=== PATIENT | female | born 1955 | race Caucasian/White ===

== ENCOUNTER 2023-08-04 09:36 | Outpatient (AMB) | payer OTHER, SELFPAY ==
--- NOTE | 2023-08-04 09:59 | MHC.OFFWIV ---
Intake Vital Signs 08/04/23 10:03 Height 5 ft 5 in Weight 295 lb BMI 49.1 BP 124/78 Blood Pressure Location Lt brachial Position Sitting Pulse 63 Pulse Source Pulse Oximeter Temp 98.0 F Temp Source Oral Pulse Oximetry (%) 97 Oxygen Delivery Method Room Air Intake Visit Reasons: [employer] ?UTI Intake Note: Patient is here with UTI symptoms which started yesterday, with blood today. Patient Tobacco Use Status: Former Tobacco user Allergies No Known Allergies Allergy (Verified 08/04/23 10:01) Do you need a note to return to daycare/school/sports/work: Yes HPI [employer] ?UTI HPI Details Patient is a 68-year-old female who is new to the walk-in, and comes in complaining of dysuria and gross blood in the urine as of this morning. She states she does have a history of urinary tract infections, which usually clear with the initial empiric treatment. She denies kidney infections, kidney stones, or other pertinent associated medical history. She denies nausea vomiting or diarrhea, weakness or dizziness, myalgias or malaise, fever or chills, abdominal pain, flank or back pain, vaginal discharge or other significant associated symptoms. No report of high-risk sexual intercourse necessitating STD testing. [facility] Social History Patient Tobacco Use Status: Former Tobacco user Review of Systems Const All systems reviewed & are unremarkable except as noted in HPI and below Physical Exam Vital Signs: Last Vital Signs Temp 98.0 F 08/04/23 10:03 Pulse 63 08/04/23 10:03 BP 124/78 08/04/23 10:03 Pulse Ox 97 08/04/23 10:03 Oxygen Delivery Method Room Air 08/04/23 10:03 BMI result Body Mass Index 49.1 Const General: cooperative, healthy appearing, comfortable, no acute distress, alert, awake, Physically active and well groomed; No anxious, diaphoretic, ill appearing, intoxicated appearing, poor hygiene or tired appearing Nutritional Appearance: average body habitus Orientation/consciousness: oriented to person Limitations: no limitations Resp Effort & Inspection: normal respiratory effort, able to speak in complete sentences, no audible wheezes, no cough, no grunting, not labored, no nasal flaring, no retractions and symmetric chest movement Auscultation: clear to auscultation bilaterally, no crackles, no rales, no rhonchi, no wheezes, lung sounds not diminished and No rub present Cardio Rate: regular rate GI Palpation (GI): Soft to palpation, nontender, no guarding and not rigid General: Yes no CVA tenderness Back/Spine/Pelvis Back: no CVA tenderness Skin Other: Good color, warm and dry Neuro General: oriented to person Psych Appearance: grossly normal Mental Status: mental status grossly normal Speech and movement: Normal speech and movement present Affect: normal affect Attitude: cooperative Thought process: Normal thought process present Insight: Good insight present (Psych) Judgement: Good judgement present (Psych) Results AMB Urinalysis, Automated UA Leukoctes 2 Uzma/uL Last Edit by Diana Carranza CMA on 08/04/23 10:12 UA Nitrite Negative Last Edit by Diana Carranza CMA on 08/04/23 10:12 UA Urobilinogen 0.2 mg/dL Last Edit by Diana Carranza CMA on 08/04/23 10:12 UA Protein 2 mg/dL Last Edit by Diana Carranza CMA on 08/04/23 10:12 UA pH 6.0 Last Edit by Diana Carranza CMA on 08/04/23 10:12 UA Blood 3 Jerry/uL Last Edit by Diana Carranza CMA on 08/04/23 10:12 UA Specific Ullin 1.030 Last Edit by Diana Carranza CMA on 08/04/23 10:12 UA Ketone Negative Last Edit by Diana Carranza CMA on 08/04/23 10:12 UA Bilirubin 0 mg/dL Last Edit by Diana Carranza CMA on 08/04/23 10:12 UA Glucose 0 mg/dL Last Edit by Diana Carranza CMA on 08/04/23 10:12 Results Reviewed Results Reviewed: Laboratory Last Values Urine pH (Auto) 6.0 08/04/23 09:55 Specific Ullin (Auto) 1.030 08/04/23 09:55 Urine Protein (Auto) 2 mg/dL 08/04/23 09:55 Glucose (UA)(Auto) 0 mg/dL 08/04/23 09:55 Urine Ketones (Auto) Negative 08/04/23 09:55 Urine Blood (Auto) 3 Jerry/uL 08/04/23 09:55 Urine Nitrite (Auto) Negative 08/04/23 09:55 Urine Bilirubin (Auto) 0 mg/dL 08/04/23 09:55 Urine Urobilinogen (Auto) 0.2 mg/dL 08/04/23 09:55 Leukocyte Esterase (Auto) 2 Uzma/uL 08/04/23 09:55 Assessment & Plan Assessment & Plan (1) Urinary tract infection: Code(s): N39.0 - Urinary tract infection, site not specified Qualifiers: Urinary tract infection type: acute cystitis Hematuria presence: with hematuria Qualified Code(s): N30.01 - Acute cystitis with hematuria Plan: Patient is a 68-year-old female with apparent acute simple cystitis. She does have a history of this, but not frequently. Her last infection did clear with Macrobid, and she has no resistance issues known. She is stable and has no signs of sepsis, and no dizziness or flank pain or anorexia or other symptoms suggestive of pyelonephritis except for the jean blood. So will start her on a course of Macrobid to cover a lower urinary tract infection. She knows to follow up if symptoms persist or worsen, or go to the emergency department with worrisome symptoms Orders: Orders AMB Urinalysis Automated 08/04/23 R30.0 - Dysuria Medications: New nitrofurantoin monohyd/m-cryst 100 mg (Macrobid) must administer with a meal/food 100 mg PO Q12H 10 caps 0RF 5 days N39.0 - Urinary tract infection, site not specified Coding Level of Care Code New Pt Level 4 (48175) Diagnoses Acute cystitis with hematuria N30.01 Urinary tract infection type: acute cystitis Hematuria presence: with hematuria
[2023-08-04 10:03] VITALS: BP 124/78; PULSE 63; TEMP 36.7; O2SAT 97; BMI 49.1
== END 2023-08-04 12:37 | disposition home or self-care (01) ==
PROVIDERS: Visit Provider Physician Assistant Medical
DX: N30.01 Acute cystitis with hematuria (principal)
CPT/HCPCS: 81003; 99051; 99204